=== PATIENT | female | born 1990 | race African-American/Black ===

== ENCOUNTER 2016-07-02 22:16 | Emergency (ER) | payer OTHER ==
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
[2016-07-02 22:55] VITALS: BP 135/72; PULSE 88; RESP 18; TEMP 99.4; O2SAT 100
[2016-07-02] MEDS ORDERED: ROBA500T PO (22:59)
[2016-07-02] MEDS ORDERED: TRAM50TA PO (22:59)
[2016-07-02] MEDS ORDERED: METOCLOPRAMIDE HCL 10 MG TAB PO ONE (23:00)
[2016-07-02] MEDS ORDERED: KETOROLAC TROMETHAMINE 60 MG/2 ML (IM) VIAL IM ONE (23:00)
== END 2016-07-02 23:30 | disposition home or self-care (01) ==
LOC: NEPD 22:16
DX: S16.1XXA Strain of muscle, fascia and tendon at neck level, initial encounter (principal); V43.52XA Car driver injured in collision with other type car in traffic accident, initial encounter; J45.909 Unspecified asthma, uncomplicated; Z72.0 Tobacco use
CPT/HCPCS: 84703; 96372; 99284; J1885

== ENCOUNTER 2017-11-25 08:35 | Inpatient (IN) ==
[2017-11-25] MEDS ORDERED: ceFAZolin 2 GM Premix Inj 2 GM/50 ML PIGGYBACK IV.SIG PRN (09:04)
--- NOTE | 2017-11-25 09:04 | P.HPOB ---
COMMANDING OFFICER MOTORIZED SQUAD - Consult Note Patient Name: Zain Fitzpatrick Date of : 89 Patient Status: Clinical Attending Provider: Makenzie Naidu Date: 11/25/2017 Initialization Date: History of Present Illness Service: care at [facility] Primary Care Physician: No Primary Care Physician Chief Complaint: 27-year-old G4 P 2011 EGA 36+ weeks presents for repeat consult History of Present Illness: Presents for section consult 39 week + G 4 P 2011 presents for consultation. Patient presents today for C- section repeat. care [facility]. Past medical history denied. Past surgical history delivery. Allergies denies. Social history denies. On examination no apparent distress speaks with these lungs clear to auscultation bilaterally no wheezing no rales or rubs cardiac S1-S2 abdomen soft nontender gestational age consistent with fundal exam pelvic exam deferred. Patient reports active movement. Vital signs stable. Assessment 36+ weeks gestation. Consult for repeat delivery alternatives benefits complications including but not limited to maternal/ injury- anesthesia related risks and/or complications. Preop and Intra-Op as well as postop expectations reviewed. Patient expressed verbal understanding. Given written information regarding preop preparation which patient has signed. Weeks Gestation:: 37 Para: 2 : 4 Review of Systems All other systems reviewed negative except as stated in HPI PMFSH - Medical / Surgical Hx Neg / Unobtainable Medical Problems Denied: Yes - Surgical History Surgical History: Surgical History (Last Updated 11/11/17 @ 13:43 by Makenzie Naidu MD) Hx of section - Social History I have reviewed the patient's Social History: Yes - Tobacco History Smoking Status: Former smoker (Marijuana use) - Alcohol History How Often Do You Have a Drink Containing Alcohol: Never - Substance Use History Substance History: No History of Abuse - Travel History History of Recent Travel: No Recent Travel in the [place] Within the Last 8 Weeks: No Recent Travel Out of the Country Within the Last 8 Weeks: No Medications and Allergies Allergies Allergy/AdvReac Type Severity Reaction Status Date / Time No Known Allergies Allergy Uncoded 03/02/14 15:28 Exam - Constitutional no acute distress - Routine HEENT Exam Head: Present: normocephalic - Routine Respiratory Exam Present: CTA bilaterally - Routine Cardiovascular Exam Present: RRR - Routine Exam Patient deferred: external exam Assessment and Plan - Diagnosis (1) History of delivery, currently Code(s): O34.219 - Maternal care for unspecified type scar from previous delivery Status: Acute 2-- 39 wks for repeat C/S - Plan Scheduled for repeat delivery November 25 at 10:30 AM patient declines tubal sterilization
[2017-11-25] MEDS ORDERED: Citric Acid/Sodium Citrate Liq 30 ML UDC PO SCH (09:15)
[2017-11-25 09:25] LABS: Baso % (Auto) 0.5 % (0.0-2.0); Eos % (Auto) 0.5 % (0.0-4.0); Hematocrit 33.1 % (35.0-46.0); Hemoglobin 10.7 gm/dL (11.6-15.3); Lymph # (Auto) 1.8 th/mm3 (1.0-4.8); Lymph % (Auto) 18.2 % (9.0-44.0); Mean Corpuscular HGB Conc 32.3 % (32.0-36.0); Mean Corpuscular Hemoglobin 24.7 pg (27.0-34.0); Mean Corpuscular Volume 76.6 fL (80.0-100.0); Mean Platelet Volume 7.3 fL (7.0-11.0); Mono # (Auto) 1.1 th/mm3 (0.0-0.9); Mono % (Auto) 11.4 % (0.0-8.0); Neut # (Auto) 6.8 th/mm3 (1.8-7.7); Neut % (Auto) 69.4 % (16.0-70.0); Platelet Count 228 th/mm3 (150-450); Red Blood Count 4.32 mil/mm3 (4.00-5.30); Red Cell Distribution Width 14.6 % (11.6-17.2); White Blood Count 9.8 th/mm3 (4.0-11.0)
[2017-11-25 09:37] LABS: Bacteria,Urine Moderate /hpf; Bilirubin,Urine Negative (Negative); Clarity,Urine Cloudy (Clear); Color,Urine Yellow (Yellw/Straw); Glucose,Urine (UA) Negative (Negative); Leukocyte Esterase,Urine Small (Negative); Mucus,Urine Many /lpf (Occasional); Nitrite,Urine Negative (Negative); Specific Gravity,Urine 1.018 (1.002-1.035); Squamous Epithelial Cell,Urine 36 /hpf (0-5)
[2017-11-25 09:43] LABS: Amphetamine Screen,Urine Neg (Neg); Barbiturate Screen,Urine Neg (Neg); Cannabinoid Screen,Urine Neg (Neg); Cocaine Screen,Urine Neg (Neg)
[2017-11-25 09:47] LABS: Opiate Screen,Urine Neg (Neg)
[2017-11-25] MEDS ORDERED: Morphine Sulfate PF Inj 5 MG/10 ML Ampul ONE (09:58)
[2017-11-25] MEDS ORDERED: Phenylephrine/NS 1000 MCG/10ML Syringe IV.PUSH ONE (10:15)
--- NOTE | 2017-11-25 11:38 | P.OBDELI ---
Procedure Note Performed by: Erin Brock MD, R2 , Rotating Equipment Specialist Hospitalist Procedure: Repeat Low Transverse Section Indication for Delivery: Desired elective repeat Informed Consent Obtained: For anesthesia, For procedure Confirmed Correct: Patient, Procedure, Site, Time-out taken Anesthesia: Spinal Medication Prior to Procedure: As documented in eMAR Monitoring During Procedure: Blood pressure monitoring, shelter monitor, doppler, monitor, Pulse oximetry Urinary Catheter: Inserted using sterile technique Sterile Preparation: With 2% chlorexidine (Hibiclens) Position: Supine with wedge to right side - Operative Features Skin Incision: Pfannenstiel Uterine Incision: Low transverse w/knife / blunt ext Presentation: Occiput anterior Status of : Viable, Cord blood, Umbilical cord Placenta Delivered: Intact Medications: Antibiotics Estimated blood loss (mL): 1,000 Procedure Tolerated: Well Maternal Condition: Stable Baby Condition: Stable - Infant Infant: Female
--- NOTE | 2017-11-25 12:03 | P.OP ---
- Preoperative Diagnosis (1) History of delivery, currently - Postoperative Diagnosis (1) History of delivery, currently Date of procedure: 11/25/17 Procedure: Repeat lower uterine segment transverse section Anesthesia: spinal Surgeon: Makenzie Lopez MD Machine Fitter: Hernando Karimi MD Estimated blood loss (mL): 1,000 Pathology: none sent Operation and Findings: Preop repeat delivery at 39 weeks Postop same Operative procedure repeat lower uterine segment transverse section Patient counseled on alternatives benefits complications including but not limited to permanent injury to the bowel bladder nerve blood vessel ureters any structures in abdomen or pelvis infection hemorrhage morbidity mortality related surgery under anesthesia related procedures even remote possibility of risk of injury. Subsequently taken to the OR where she was placed under spinal analgesia without incident prepped and draped in normal sterile fashion. A Pfannesteil incision was made to the previous incision carried down to the underlying layer of fascia which was noted to be densely adherent note sharp technique with the use of scalpel to incise the fascia in the midline and subsequently extended laterally sharply with the use of a Caldwell scissor and knife. Subsequently the superior S2 the fascia was grasped with Brookwood clamps x2 dissected off from the underlying rectus muscle and in the inferior aspect of the fascia was grasped to [place] clamps x2 dissected off from the underlying rectus muscle with direct visualization. The rectus muscle was noted to be densely adherent at this time utilization of Allis clamps x2 to attempt the midline and subsequently incised with sharp scalpel. And then subsequently extended laterally digitally on note to the patient's right the bladder is noted to be densely adherent. At this time the vesicouterine peritoneum was identified created in a sharp fashion transversely using Metzenbaum scissors. On note Jose retractor was utilized throughout the case or self-retaining retractor. Once the vesicouterine peritoneum was identified the bladder blade was repositioned followed by a transverse incision on the lower uterine segment with care to avoid the bladder and other vasculature. Amniotomy reveals clear fluid subsequently a viable female was delivered the vertex was delivered without incident nares and mouth bulb suction note there was a cord around the neck and the body. The remainder of the body was delivered without incident. A viable infant female Apgars 8 9 delivered. Weight 6.4 pounds. Cord blood was collected the placenta was manually removed uterus cleared of all clot and debris uterus was exteriorized. Note brisk uterine bleeding was noted to the patient's left of the uterine incision which was quickly identified and subsequently ligated with [id number] x2. Note the uterine incision was closed first with a running lock stitch followed by second imbricating Lambert suture hemostasis was noted to be adequate. Both adnexa were noted to be within normal limits. There is no pathology noted to the posterior aspect of the uterus. The paracolic gutters were cleared of all clot and debris. Subsequently the uterus was repositioned and the pelvic abdominal cavity. Reevaluation of the uterine incision noted to be hemostatic. This was done after removal of the Jose retractor. Once hemostasis was assured retractors removed all instrumentation taken to account identification of the fascia which was closed with 1 PDS in a running fashion. Subcutaneous bleeding was controlled with Bovie pencil noted to be minimal Monocryl on a Sander needle used to close the skin followed by Steri-Strips patient all procedure well sponge lap needle counts were noted to be correct x2 patient taken to recovery room in stable condition . Mother and baby stable.
[2017-11-25] MEDS ORDERED: Ketorolac Inj 30 MG/ML (IVP) Vial ONE (12:06)
[2017-11-25] MEDS ORDERED: Ketorolac Inj 30 MG/ML (IVP) Vial IV.PUSH PRN (13:00)
[2017-11-25] MEDS ORDERED: Oxytocin 30 Units/500ml Premix 30 UNITS/500 ML BAG IV.SIG ONE (13:00)
[2017-11-25] MEDS ORDERED: Naloxone Inj 0.4 MG/ML Vial IV.PUSH PRN (14:04)
[2017-11-25] MEDS ORDERED: Oxytocin 30 Units/500ml Premix 30 UNITS/500 ML BAG IV.SIG PRN (16:39)
[2017-11-25 16:58] LABS: Baso % (Auto) 0.2 % (0.0-2.0); Hemoglobin 9.3 gm/dL (11.6-15.3); Lymph # (Auto) 0.7 th/mm3 (1.0-4.8); Lymph % (Auto) 3.5 % (9.0-44.0); Mean Corpuscular HGB Conc 33.1 % (32.0-36.0); Mean Corpuscular Hemoglobin 25.4 pg (27.0-34.0); Mean Corpuscular Volume 76.8 fL (80.0-100.0); Mean Platelet Volume 7.3 fL (7.0-11.0); Mono # (Auto) 0.7 th/mm3 (0.0-0.9); Mono % (Auto) 3.5 % (0.0-8.0); Neut # (Auto) 18.8 th/mm3 (1.8-7.7); Neut % (Auto) 92.8 % (16.0-70.0); Platelet Count 210 th/mm3 (150-450); Red Blood Count 3.64 mil/mm3 (4.00-5.30); Red Cell Distribution Width 14.5 % (11.6-17.2); White Blood Count 20.3 th/mm3 (4.0-11.0)
[2017-11-25] MEDS: ceFAZolin Inj 2,000 MG in Sodium Chlor 0.9% Inj 80 ML IV.SIG SCH (17:44)
[2017-11-26] MEDS: ceFAZolin Inj 2,000 MG in Sodium Chlor 0.9% Inj 80 ML IV.SIG SCH (02:52)
[2017-11-26 05:52] LABS: Baso % (Auto) 0.2 % (0.0-2.0); Eos % (Auto) 0.1 % (0.0-4.0); Hematocrit 26.9 % (35.0-46.0); Hemoglobin 8.7 gm/dL (11.6-15.3); Lymph # (Auto) 2.1 th/mm3 (1.0-4.8); Lymph % (Auto) 11.9 % (9.0-44.0); Mean Corpuscular HGB Conc 32.4 % (32.0-36.0); Mean Corpuscular Hemoglobin 24.8 pg (27.0-34.0); Mean Corpuscular Volume 76.5 fL (80.0-100.0); Mean Platelet Volume 7.7 fL (7.0-11.0); Mono # (Auto) 1.7 th/mm3 (0.0-0.9); Mono % (Auto) 9.9 % (0.0-8.0); Neut # (Auto) 13.6 th/mm3 (1.8-7.7); Neut % (Auto) 77.9 % (16.0-70.0); Platelet Count 230 th/mm3 (150-450); Red Blood Count 3.52 mil/mm3 (4.00-5.30); Red Cell Distribution Width 14.6 % (11.6-17.2); White Blood Count 17.4 th/mm3 (4.0-11.0)
--- NOTE | 2017-11-26 09:31 | P.PNOB ---
Subjective Post op day: 1 Interval history: Pt seen and examined bedside this morning. Pt tolerating PO, and ambulating and voiding without difficulty. Denies any CP/SOB/dizzyness. Pain well- controlled on current medications. No calf tenderness. Objective Vital Signs/I&O: Vital Signs 11/25/17 09:40 11/25/17 09:45 11/25/17 09:50 Temperature Pulse Rate 127 H 84 86 Respiratory Rate Blood Pressure 11/25/17 10:05 11/25/17 11:49 11/25/17 12:01 Temperature 97.8 F Pulse Rate 84 78 75 Respiratory Rate 18 18 Blood Pressure 137/71 136/71 11/25/17 12:15 11/25/17 12:31 11/25/17 13:46 Temperature 97.9 F 98.1 F Pulse Rate 74 70 81 Respiratory Rate 18 18 17 Blood Pressure 142/67 H 142/68 H 139/70 11/25/17 20:00 11/26/17 00:45 11/26/17 08:17 Temperature 97.6 F 98.0 F 98.0 F Pulse Rate 85 74 80 Respiratory Rate 18 16 20 Blood Pressure 140/73 120/69 132/73 Intake & Output 11/25/17 11/26/17 11/26/17 18:59 06:59 18:59 Intake Total 200 / 200 Balance 200 / 200 Weight 87.543 kg Intake: IV 200 / 200 Ofirmev Inj 1,000 mg In 100 ml 100 / 100 @ 400 mls/hr IV.SIG Q8H [facility] Rx# :[id number] Ancef Inj 2,000 MG In NS Inj 80 100 / 100 ML @ 200 mls/hr IV.SIG Q8H ABBI Rx#:[id number] Other: Weight On Admission 87.543 kg Result Diagrams: 11/26/17 05:05 Objective Remarks: GENERAL: Well-nourished, well-developed patient. CARDIOVASCULAR: Regular rate and rhythm without murmurs, gallops, or rubs. RESPIRATORY: Breath sounds equal bilaterally. No accessory muscle use. ABDOMEN/GI: Abdomen soft, non-tender, bowel sounds present. Incision: Clean, dry and intact. steri strips in place, minimal drainage Fundus: Firm, non-tender at umbilicus. GENITOURINARY: Light to moderate bleeding. EXTREMITIES: No cyanosis or edema, non-tender, without signs of DVT. Medications and IVs: Active Medications Citric Acid/Sodium Citrate (Sodium Citrate/Citric Acid Liq) 30 ml PO WARPMAN [facility] Stop: 11/29/17 09:14 Last Admin: 11/25/17 10:11 Dose: 30 ml Diphenhydramine HCl (Benadryl Inj) 25 mg IV.PUSH Q6H PRN PRN Reason: MILD TO MODERATE ITCHING Stop: 11/26/17 14:03 Last Admin: 11/25/17 14:12 Dose: 25 mg Diphenhydramine HCl (Benadryl) 50 mg PO Q6H PRN PRN Reason: MILD TO MODERATE ITCHING Stop: 11/26/17 14:03 Last Admin: 11/26/17 02:57 Dose: 50 mg Diphtheria/Pertussis/Tetanus Vacc (Boostrix Vaccine Inj) 0.5 ml IM .ONCE ONE Stop: 11/26/17 16:01 Docusate Sodium (Colace) 100 mg PO BID [facility] Cefazolin Sodium/Dextrose (Ancef 2 Gm Premix Inj) 2 gm in 50 mls @ 100 mls/hr IV.SIG WARPMAN PRN PRN Reason: ON-CALL Stop: 11/29/17 09:03 Lactated Ringer's (Lr 1000 Ml Inj) 1,000 mls @ 100 mls/hr IV.CONT .Q10H [facility] Stop: 11/26/17 12:38 Last Admin: 11/26/17 05:08 Dose: Not Given Oxytocin (Pitocin 30 Units/Ns 500 Ml Premix) 30 units in 500 mls @ 100 mls/hr IV.SIG UNSCH PRN PRN Reason: Heavy bleeding Ibuprofen (Motrin) 800 mg PO Q8H PRN PRN Reason: cramping Last Admin: 11/26/17 08:14 Dose: 800 mg Ketorolac Tromethamine (Toradol Inj) 30 mg IV.PUSH Q6H PRN PRN Reason: PAIN SCALE 1-10 Stop: 11/30/17 12:59 Last Admin: 11/25/17 12:11 Dose: 30 mg Measles/Mumps/Rubella Vaccine Live (M-M-R Ii Vaccine Inj) 0.5 ml SQ .ONCE ONE Stop: 11/26/17 16:01 Miscellaneous Information (Misc Nursing Information) 1 each OTHER UNSCH PRN PRN Reason: SEE LABEL COMMENTS Stop: 11/26/17 14:03 Miscellaneous Information (Misc Nursing Information) 1 each OTHER UNSCH PRN PRN Reason: SEE LABEL COMMENTS Stop: 11/26/17 14:03 Naloxone HCl (Narcan Inj) 0.4 mg IV.PUSH UNSCH PRN PRN Reason: SEE LABEL COMMENTS Stop: 11/26/17 14:03 Ondansetron HCl (Zofran Inj) 4 mg IV.PUSH Q6H PRN PRN Reason: NAUSEA OR VOMITING Oxycodone/Acetaminophen (Percocet 5/325 Mg) 1 tab PO Q4H PRN PRN Reason: PAIN SCALE 3 TO 5 Oxycodone/Acetaminophen (Percocet 5/325 Mg) 2 tab PO Q4H PRN PRN Reason: PAIN SCALE 6 TO 10 Last Admin: 11/26/17 08:14 Dose: 2 tab Sodium Chloride (Ns Flush) 2 ml IV.FLUSH BID [facility]BI Last Admin: 11/26/17 03:00 Dose: 2 ml Sodium Chloride (Ns Flush) 2 ml IV.FLUSH PRN PRN PRN Reason: FLUSH AFTER USING IV ACCESS Assessment and Plan - Diagnosis (1) delivery delivered Code(s): O82 - Encounter for delivery without indication Status: Acute Plan: Repeat scheduled c/s, POD#1. -VSS, Afeb -Continue OOB as tolerated - Advance diet as tolerated - cont regular post-op care - contraception: will cont to discuss, unsure today
[2017-11-26] MEDS ORDERED: Diphtheria/Tetanus/Pertussis Vaccine Inj 0.5 ML Syringe IM ONE (16:00)
[2017-11-26] MEDS ORDERED: Measles/Mumps/Rubella Vaccine Inj 0.5 ML Vial SQ ONE (16:00)
[2017-11-26] MEDS: Docusate Sodium 100 MG Capsule PO SCH ×2 (16:20→20:10)
[2017-11-26 21:14] VITALS: TEMP 98.5
--- NOTE | 2017-11-27 08:32 | P.PNOB ---
Subjective Post op day: 2 Interval history: Pt seen and examined bedside. Eating and drinking without difficulty. Ambulating and voiding without difficulty. Denies any CP/SOB/dizzyness. No calf tenderness. Pt is passing gas. Objective Vital Signs/I&O: Vital Signs 11/26/17 21:00 Temperature 98.5 F Pulse Rate 80 Respiratory Rate 20 Blood Pressure 141/79 H Result Diagrams: 11/26/17 05:05 Objective Remarks: GENERAL: Well-nourished, well-developed patient. CARDIOVASCULAR: Regular rate and rhythm without murmurs, gallops, or rubs. RESPIRATORY: Breath sounds equal bilaterally. No accessory muscle use. ABDOMEN/GI: Abdomen soft, non-tender, bowel sounds present. Incision: Clean, dry and intact. Fundus: Firm, non-tender at umbilicus. GENITOURINARY: Light to moderate bleeding. EXTREMITIES: No cyanosis or edema, non-tender, without signs of DVT. Medications and IVs: Active Medications Citric Acid/Sodium Citrate (Sodium Citrate/Citric Acid Liq) 30 ml PO SEAFOOD PACKER [facility] Stop: 11/29/17 09:14 Last Admin: 11/25/17 10:11 Dose: 30 ml Docusate Sodium (Colace) 100 mg PO BID [facility] Last Admin: 11/26/17 20:10 Dose: 100 mg Cefazolin Sodium/Dextrose (Ancef 2 Gm Premix Inj) 2 gm in 50 mls @ 100 mls/hr IV.SIG SEAFOOD PACKER PRN PRN Reason: ON-CALL Stop: 11/29/17 09:03 Oxytocin (Pitocin 30 Units/Ns 500 Ml Premix) 30 units in 500 mls @ 100 mls/hr IV.SIG UNSCH PRN PRN Reason: Heavy bleeding Ibuprofen (Motrin) 800 mg PO Q8H PRN PRN Reason: cramping Last Admin: 11/27/17 08:02 Dose: 800 mg Ketorolac Tromethamine (Toradol Inj) 30 mg IV.PUSH Q6H PRN PRN Reason: PAIN SCALE 1-10 Stop: 11/30/17 12:59 Last Admin: 11/25/17 12:11 Dose: 30 mg Ondansetron HCl (Zofran Inj) 4 mg IV.PUSH Q6H PRN PRN Reason: NAUSEA OR VOMITING Oxycodone/Acetaminophen (Percocet 5/325 Mg) 1 tab PO Q4H PRN PRN Reason: PAIN SCALE 3 TO 5 Oxycodone/Acetaminophen (Percocet 5/325 Mg) 2 tab PO Q4H PRN PRN Reason: PAIN SCALE 6 TO 10 Last Admin: 11/27/17 08:02 Dose: 2 tab Sodium Chloride (Ns Flush) 2 ml IV.FLUSH BID [facility] Last Admin: 11/26/17 20:10 Dose: Not Given Sodium Chloride (Ns Flush) 2 ml IV.FLUSH PRN PRN PRN Reason: FLUSH AFTER USING IV ACCESS Assessment and Plan - Diagnosis (1) delivery delivered Code(s): O82 - Encounter for delivery without indication Status: Acute Plan: Repeat scheduled c/s, POD#2. -VSS, Afeb -Continue OOB as tolerated - Advance diet as tolerated - cont regular post-op care - contraception: pt unsure, will f/u with PCP as outpatient
[2017-11-27 09:01] VITALS: BP 141/87
[2017-11-27 09:02] VITALS: PULSE 92; RESP 18
[2017-11-27] MEDS: Docusate Sodium 100 MG Capsule PO SCH (09:10)
== END 2017-11-27 14:17 | disposition home or self-care (01) ==
LOC: H2E 08:35 → H1EA 12:56
PROVIDERS: ADMIT Obstetrics & Gynecology; ATTEND Obstetrics & Gynecology